=== PATIENT | male | born 2000 | race Caucasian/White ===

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

== ENCOUNTER 2022-01-22 07:31 | Emergency (ER) | payer SELFPAY | END 2022-01-22 08:20 | disposition home or self-care (01) | LOC: JD.ED 07:31 | DX: S60.221A Contusion of right hand, initial encounter (principal); S90.31XA Contusion of right foot, initial encounter | CPT/HCPCS: 73130-26-RT; 73130-RT; 73630-26-RT; 73630-RT; 99283 ==

== ENCOUNTER 2022-04-07 20:02 | Emergency (ER) | payer SELFPAY ==
[2022-04-07] MEDS ORDERED: Ibuprofen 600 MG Tab PO ONE (20:24)
[2022-04-07] MEDS ORDERED: Ondansetron 4 MG Tab.DIS PO ONE (20:24)
== END 2022-04-07 22:51 | disposition home or self-care (01) ==
LOC: JD.ED 20:02
DX: R51.9 Headache, unspecified (principal); R11.0 Nausea
CPT/HCPCS: 70450; 99284; A9270

== ENCOUNTER 2022-08-04 06:55 | Emergency (ER) | payer SELFPAY | END 2022-08-04 09:20 | disposition home or self-care (01) | LOC: JD.ED 06:55 | DX: S06.0X1A Concussion with loss of consciousness of 30 minutes or less, initial encounter (principal); S80.11XA Contusion of right lower leg, initial encounter; S00.31XA Abrasion of nose, initial encounter; F10.920 Alcohol use, unspecified with intoxication, uncomplicated; Z86.16 Personal history of COVID-19; Y90.0 Blood alcohol level of less than 20 mg/100 ml; W22.8XXA Striking against or struck by other objects, initial encounter | CPT/HCPCS: 36415; 70450; 70450-26; 80053; 80307; 85025; 99284 ==

== ENCOUNTER 2023-06-30 11:13 | Emergency (ER) | payer SELFPAY ==
[2023-06-30] MEDS: cefTRIAXone 2 GM, Lidocaine 1% 4.2 ML IM ONE (13:55)
[2023-06-30] MEDS: cefTRIAXone 1 GM Vial IM ONE ×2 (13:55)
== END 2023-06-30 14:40 | disposition home or self-care (01) ==
LOC: JD.ED 11:13
DX: K04.7 Periapical abscess without sinus (principal); Z86.16 Personal history of COVID-19
CPT/HCPCS: 96372; 99283; J0696; 99282; J3490

== ENCOUNTER 2024-08-27 22:23 | Emergency (ER) | payer BC ==
[2024-08-27] MEDS: Proparacaine 0.5% Ophth Soln 15 ML Bottle EYERT ONE (23:19)
[2024-08-27] MEDS: Fluorescein 1 MG Ophth Strip EYERT ONE (23:37)
[2024-08-27] MEDS ORDERED: Ofloxacin 0.3% Ophth Soln 5 ML Bottle EYERT SCH (23:45)
[2024-08-27] MEDS: Amoxicillin/Clavulanate K 875-125 MG Tab PO ONE (23:48)
== END 2024-08-27 23:57 | disposition home or self-care (01) ==
LOC: JD.ED 22:23
DX: S00.211A Abrasion of right eyelid and periocular area, initial encounter (principal); Z79.899 Other long term (current) drug therapy; Z86.16 Personal history of COVID-19; W55.03XA Scratched by cat, initial encounter; Y93.89 Activity, other specified
CPT/HCPCS: 99283; A9270; J3490

== ENCOUNTER 2025-03-22 07:12 | Emergency (ER) | payer SELFPAY ==
[2025-03-22] MEDS ORDERED: Sodium Chloride 0.9% 10 ML Syringe FLUSH PRN (07:49)
[2025-03-22 07:58] LABS: BASOPHILS ABSOLUTE AUTO 0.0 K/mm3 (0.0-0.2); BASOPHILS PERCENT AUTO 0.4 % (0.0-1.0); EOSINOPHILS ABSOLUTE AUTO 0.1 K/mm3 (0.0-0.4); EOSINOPHILS PERCENT AUTO 1.0 % (0.0-6.0); IMMATURE GRAN ABSOLUTE AUTO 0.02 K/mm3 (0.00-0.05); IMMATURE GRAN PERCENT AUTO 0.3 % (0.0-0.4); LYMPHOCYTES ABSOLUTE AUTO 2.2 K/mm3 (1.0-4.8); LYMPHOCYTES PERCENT AUTO 31.3 % (24.0-44.0); MEAN PLATELET VOLUME 9.6 fl (9.4-12.4); MONOCYTES ABSOLUTE AUTO 0.5 K/mm3 (0.0-0.8); MONOCYTES PERCENT AUTO 6.9 % (0.0-8.0); NEUTROPHILS ABSOLUTE AUTO 4.2 K/mm3 (1.8-7.7); NEUTROPHILS PERCENT AUTO 60.1 % (41.0-71.0); NRBC ABSOLUTE 0.00 (0.00-0.02); NRBC PERCENT 0.0 % (0.0-0.2); PLATELET COUNT,PLT 248 K/mm3 (150-400); RED BLOOD CELL COUNT 5.22 M/mm3 (4.52-5.90); WHITE BLOOD CELL COUNT,WBC 6.97 K/mm3 (3.9-11.3)
[2025-03-22 08:14] LABS: A/G RATIO 1.2 (1-2); ALANINE AMINOTRANSFERASE,ALT 23.0 U/L (16-63); ASPARTATE AMNIOTRANSFERASE,AST 23.0 U/L (15-37); BILIRUBIN TOTAL 1.7 mg/dL (0.2-1.0); BLOOD UREA NITROGEN,BUN 7.0 mg/dL (7-18); CARBON DIOXIDE,CO2 29.0 mEq/L (21-32); CHLORIDE,CL 100.0 mEq/L (98-107); CREATININE 1.0 mg/dL (0.7-1.3); EST CRCL DRUG DOSING (CG) 106.49 mL/min; ESTIMATED GFR 108.0 mL/min (>60); ETHANOL BLOOD MEDICAL 0.08 gm% (0.00); GLUCOSE RANDOM 93.0 mg/dL (70-99); POTASSIUM,K 3.5 mEq/L (3.5-5.1); PROTEIN TOTAL,TP 7.8 g/dl (6.4-8.2); SODIUM,NA 139.0 mEq/L (136-145)
[2025-03-22] MEDS: Iopamidol 612 MG/ML 100 ML Bottle IVPUSH ONE (08:18)
[2025-03-22] MEDS: Sodium Chloride 0.9% 10 ML Syringe FLUSH PRN (08:18)
[2025-03-22] MEDS: Ondansetron 4 MG/2 ML SDV IVPUSH ONE (08:37)
[2025-03-22 11:27] LABS: APPEARANCE,URINE CLEAR (Clear); GLUCOSE,URINE NEGATIVE (Negative); OCCULT BLOOD,URINE NEGATIVE (Negative)
[2025-03-22 11:33] LABS: BUPRENORPHINE SCREEN,URINE NEGATIVE (CUTOFF=10); METHADONE SCREEN, URINE NEGATIVE (CUT0FF=200); METHAMPHETAMINES SCREEN, URINE NEGATIVE (CUTOFF=500); OXYCODONE SCREEN,URINE NEGATIVE (CUT0FF=100); THC SCREEN,URINE 20 NG/ML NEGATIVE (CUTOFF=50)
[2025-03-22 11:35] LABS: AMPHETAMINES SCREEN, URINE NEGATIVE (CUTOFF=500)
== END 2025-03-22 12:28 | disposition home or self-care (01) ==
LOC: JD.ED 07:12
DX: R10.84 Generalized abdominal pain (principal); J45.909 Unspecified asthma, uncomplicated; Z87.19 Personal history of other diseases of the digestive system; Z86.16 Personal history of COVID-19
CPT/HCPCS: 36415; 74177; 80053; 80306; 80307; 81003; 83690; 83735; 85025; 96361; 96374; 99284; J2405; J7030; Q9967